=== PATIENT | male | born 2000 | race Caucasian/White ===

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

== ENCOUNTER 2023-11-02 18:15 | Emergency (ER) | payer SELFPAY ==
[2023-11-02 18:21] VITALS: BP 144/73; PULSE 76; RESP 18; TEMP 37.4; O2SAT 99; BMI 38.0
[2023-11-02 20:38] VITALS: BP 144/73; PULSE 76; RESP 18; TEMP 37.4; O2SAT 99
== END 2023-11-02 19:23 | disposition left against medical advice (07) ==
LOC: ER 18:25
PROVIDERS: Emergency Provider Family Medicine
DX: Z53.21 Procedure and treatment not carried out due to patient leaving prior to being seen by health care provider (principal)